=== PATIENT | female | born 1965 | race Caucasian/White ===

== ENCOUNTER → 2020-04-13 08:31 | Outpatient (CLI) | payer BC, SELFPAY ==
--- NOTE | ~2020-04-13 | US_ITS ---
US abdomen limited INDICATION: Epigastric pain. Constipation. Bloating. PROCEDURE: Realtime right upper abdominal ultrasound. COMPARISON: No prior studies for comparison. FINDINGS: The pancreas is normal without focal mass or pancreatic ductal dilation. Liver echotexture is normal without focal mass or intrahepatic biliary dilatation. There is normal directional flow i n the portal vein. The gallbladder is normal without stones, gallbladder wall thickening or pericholecystic fluid. Comm on bile duct measures 5 mm. No sonographic Read's sign. IMPRESSION: 1: Normal limited abdominal ultrasound. Reviewed, dictated and finalized at location A.
== END ==
PROVIDERS: PCP Family Medicine; Visit Provider Family Medicine
DX: R10.13 Epigastric pain (principal)
CPT/HCPCS: 76705

== ENCOUNTER 2020-05-04 17:01 | Emergency (ER) | payer BC, SELFPAY ==
[2020-05-04 17:05] VITALS: BP 153/86; PULSE 92; RESP 16; TEMP 36.7; O2SAT 99
--- NOTE | 2020-05-04 17:30 | ED.URI ---
HPI - URI/Sore Throat General Chief Complaint: Upper Respiratory Infection Stated Complaint: cough/nasal drainage Source: patient and RN notes reviewed Limitations: no limitations History of Present Illness HPI Narrative: The patient, a non-smoker/nondrinker, presents with cough. Patient states she has seasonal history of intermittent cough, mild greenish sputum changes which now has worsened for the last 2 days. No fever, sneezing/wheezing, loss of taste/smell, CP, earache, sore throat, S OB; she specifically and repeatedly declines covid testing. Symptoms are mild, unrelieved with OTC preparations [guaifenesin] Related Data Home Medications Medication Instructions Recorded Confirmed lisinopril 10 1 tablet PO DAILY 10/23/19 05/04/20 mg-hydrochlorothiazide 12.5 mg tablet aspirin 81 mg PO DAILY 05/04/20 05/04/20 Allergies Allergy/AdvReac Type Severity Reaction Status Date / Time cephalexin Allergy Unknown Facial Verified 05/04/20 17:03 swelling SEASONAL ALLERGIES Allergy Mild Sneezing Uncoded 10/23/19 12:40 Review of Systems Review of Systems: Narrative: General/Constitutional: No weight loss,fever Eyes: N0: Redness,discharge Ears/Nose/Throat: No: Epistaxis,ear discharge Respiratory: Denies: Hemoptysis Gastrointestinal: No Vomiting, Bleeding-rectal Skin: No Lumps, eruption Neurologic: No Focal Weakness,Sz Hematologic: Denies: Petechiae/Purpura Psychiatric: No: Suicida ideationl All Other Systems: Reviewed and Negative PMFSH Social History Social History Smoking status: Never smoker Second hand tobacco smoke exposure: No Alcohol intake: never Comments At time of signature, agree with nursing past medical, surgical, social and family history. There is no relevant family history pertinent to the presenting complaint Exam Narrative: Exam Narrative: General Appearance: Well appearing, Well nourished/obese Conjunctiva clear Ears: Auditory canal normal, Nose: Rhinorrhea, Mucousal erythema Mouth/Throat: MM moist, Uvula midline, Pharyngeal erythema Neck: Supple, No adenopathy Respiratory: No respiratory distress, Breath sounds equal, Clear to auscultation Cardiovascular: No JVD Musculoskeletal: Non tender, Normal strength Skin: Warm, Dry Neurological: A&O x3, , Normal affect Course Vital Signs Vital signs: Vital Signs Temperature 98.1 F 05/04/20 17:05 Pulse Rate 92 05/04/20 17:05 Respiratory Rate 16 05/04/20 17:05 Blood Pressure 153/86 H 05/04/20 17:05 Pulse Oximetry 99 05/04/20 17:05 Temperature 98.1 F 05/04/20 17:05 Pulse Rate 92 05/04/20 17:05 Respiratory Rate 16 05/04/20 17:05 Blood Pressure 153/86 H 05/04/20 17:05 Pulse Oximetry 99 05/04/20 17:05 Discharge Plan Discharge Clinical Impression: Sinobronchitis Patient Disposition: Home, Self-Care Condition: Stable Instructions: Antibiotic Form, Acute Bronchitis (ED) Prescriptions: New azithromycin 250 mg tablet See Rx Instructions .ROUTE .COMPLEX Qty: 6 RF: 0 prednisone 20 mg tablet 60 mg PO DAILY Qty: 9 RF: 0 albuterol sulfate [Ventolin HFA] 90 mcg/actuation HFA aerosol inhaler 2 puff INHALATION QID PRN (Reason: shortness of breath or wheezing) Qty: 1 RF: 1 montelukast [Singulair] 10 mg tablet 10 mg PO HS Qty: 20 RF: 1 benzonatate [Tessalon Perles] 100 mg capsule 100 mg PO TID Qty: 20 RF: 1 No Action aspirin 81 mg Tablet,Chewable 81 mg PO DAILY RF: 0 lisinopril-hydrochlorothiazide 10-12.5 mg tablet 1 tablet PO DAILY RF: 0 esomeprazole magnesium [Nexium] 40 mg capsule,delayed release(DR/EC) 40 mg PO DAILY Qty: 30 RF: 1 Follow-up/Referrals: Rosenda Scruggs MD [Primary Care Provider] - Discharge Date/Time: 05/04/20 17:40
== END 2020-05-04 17:40 | disposition home or self-care (01) ==
PROVIDERS: Emergency Provider Emergency Medicine; PCP Family Medicine
DX: J32.9 Chronic sinusitis, unspecified (principal); J40 Bronchitis, not specified as acute or chronic; I10 Essential (primary) hypertension; K21.9 Gastro-esophageal reflux disease without esophagitis
CPT/HCPCS: 99213; G0463

== ENCOUNTER 2022-02-02 08:54 | Outpatient (CLI) | payer OTHER, SELFPAY ==
--- NOTE | ~2022-02-02 | MM_ITS ---
EXAMINATION: MM screening [place] [facility] w [facility] HISTORY: Screening mammogram TECHNIQUE: Craniocaudal and mediolateral oblique 3-D tomosynthesis images were obtained and synthetic 2-D images were generated. CAD analysis was submitted and interpreted. COMPARISON: 11/02/2018, 07/21/2017, 11/27/2013 bilateral screening mammogram examinations BREAST PARENCHYMAL COMPOSITION: The breasts are almost entirely fatty. FINDINGS: There is no evidence of suspicious mass, calcification, or architectural distortion to sugg est malignancy in either breast. There has been no suspicious interval change. IMPRESSION: 1. No mammographic evidence of malignancy. 2. Recommend routine screening mammography in one year. BI-RADS Category 1: Negative Reviewed, dictated and finalized at location A.
== END 2022-02-02 08:55 | disposition home or self-care (01) ==
LOC: ANHIMG 08:57
PROVIDERS: PCP Family Medicine; Visit Provider Physician Assistant
DX: Z12.31 Encounter for screening mammogram for malignant neoplasm of breast (principal)
CPT/HCPCS: 77063; 77067

== ENCOUNTER 2022-04-03 10:26 | Outpatient (CLI) | payer OTHER, SELFPAY ==
--- NOTE | ~2022-04-03 | XR_ITS ---
EXAMINATION: XR foot RT min 3V DATE: 04/03/2022 10:47 INDICATION: Right foot pain TECHNIQUE: Dorsoplantar, lateral, and 2 oblique views of the right foot were obtained. COMPARISON: None FINDINGS: Mild hallux valgus is noted. There is [id number] osteoarthritis of multiple interphal angeal joints. No fracture is identified. The soft tissues are unremarkable. Posterior and plantar ca lcaneal enthesophytes are noted. IMPRESSION: 1. Polyarticular osteoarthritis without acute osseous abnormality Reviewed, dictated and finalized at location A.
== END 2022-04-03 10:27 | disposition home or self-care (01) ==
LOC: ANHIMG 10:30
PROVIDERS: PCP Family Medicine; Visit Provider Physician Assistant
DX: M79.671 Pain in right foot (principal); M19.071 Primary osteoarthritis, right ankle and foot
CPT/HCPCS: 73630